=== PATIENT | male | born 1970 | race Caucasian/White ===

== ENCOUNTER 2020-04-05 07:16 | Day surgery (SDC) | payer MEDICAID ==
[~2020-04-05] VITALS: Ht 182.9 cm; Wt 100.0 kg
[2020-04-05 07:24] VITALS: BP 133/71
[2020-04-05] MEDS ORDERED: fentaNYL/PF 50MCG/1 ML 2ML syringe ONE (07:25)
[2020-04-05] MEDS ORDERED: MIDAZolam 5mg/5ml vial ONE (07:25)
[2020-04-05] MEDS ORDERED: SILD20TA PO (07:36)
[2020-04-05] MEDS ORDERED: GABA300C PO (07:37)
[2020-04-05] MEDS ORDERED: TRAZ-251 PO (07:37)
[2020-04-05] MEDS ORDERED: ALBU18HF2 INH (07:38)
[2020-04-05 09:03] VITALS: BP 106/72
[2020-04-05 09:13] VITALS: BP 111/61
[2020-04-05 09:23] VITALS: BP 128/75
== END 2020-04-05 09:35 | disposition home or self-care (01) ==
LOC: GI LAB 07:16
PROVIDERS: ATTEND Internal Medicine Gastroenterology
DX: Z12.11 Encounter for screening for malignant neoplasm of colon (principal); K63.5 Polyp of colon; K62.1 Rectal polyp; K57.30 Diverticulosis of large intestine without perforation or abscess without bleeding; K64.8 Other hemorrhoids
CPT/HCPCS: 45380; 45385; 99152; 99153; C1773; J2250; J3010; J7040; A4620